=== PATIENT | female | born 1980 | race Caucasian/White ===

== ENCOUNTER 2016-05-02 16:29 | Emergency (ER) | payer OTHER | END 2016-05-02 17:20 | LOC: ER 16:29 | DX: S46.912A Strain of unspecified muscle, fascia and tendon at shoulder and upper arm level, left arm, initial encounter (principal); S39.011A Strain of muscle, fascia and tendon of abdomen, initial encounter; M79.604 Pain in right leg; M79.605 Pain in left leg; F17.210 Nicotine dependence, cigarettes, uncomplicated; Z90.49 Acquired absence of other specified parts of digestive tract; Z98.51 Tubal ligation status; Z88.0 Allergy status to penicillin; Z88.5 Allergy status to narcotic agent; V49.50XA Passenger injured in collision with unspecified motor vehicles in traffic accident, initial encounter | CPT/HCPCS: 96372; J1885 ==